=== PATIENT | female | born 1945 | race Caucasian/White ===

== ENCOUNTER 2024-06-30 13:06 | Outpatient (CLI) | payer MEDICARE, SELFPAY ==
--- NOTE | ~2024-06-30 | DEXA_ITS ---
Bone Density Report Name: REGINA BILLS Age: 79 Sex: Female Ethnicity: White Date of : 1945 Indication: postmenopausal; screening for osteoporosis; height loss; cancer; hysterectomy; Referring Provider: NIDA DILLARD Study: Bone densitometry was performed. Exam Date: June 30, 2024 Accession number: [id number] Bone Density: Region BMD T-score Z-score Classification AP Spine(L1-L4) 0.809 -2.2 0.4 Osteopenia Femoral Neck (Left) 0.698 -1.4 0.8 Osteopenia Total Hip (Left) 0.856 -0.7 1.2 Normal Femoral Neck (Right) 0.589 -2.3 -0.2 Osteopenia Total Hip (Right) 0.791 -1.2 0.7 Osteopenia Femoral Neck Mean 0.643 -1.9 0.3 Osteopenia Total Hip Mean 0.823 -1.0 0.9 Normal World Health Organization criteria for BMD impression classify patients as: Normal (T-score at or above -1.0), Osteopenia (T-score between -1.0 and -2.5), or Osteoporosis (T-score at or below -2.5). 10-year Fracture Risk(1): Major Osteoporotic Fracture 15% Hip Fracture 4.4% Reported Risk Factors: [place] (), Neck BMD=0.589, BMI=32.2 (1) FRAX(R) Version 3.08. Fracture probability calculated for an untreated patient. Fracture probability may be lower if the patient has received treatment. Clinical Information Provided by Patient: Has used the following medications: Calcium, multi Has the following medical conditions: Cancer, Hysterectomy Patient maximum height was 61. Menopause Age: 34 No regular weight bearing exercise Drinks caffeinated beverages Onset of menses at age 14 Number of children 4 Impression: The patient has low bone mass, based on the Right Femoral Neck T-score. Discussion: BONE DENSITY IS LOW AT ONE OR MORE SKELETAL SITES. This patient's lowest T-score is low at one or more skeletal sites. It meets the World Health Organization's (WHO) criteria for ?low bone mass? (T-score between -1.0 and -2.5). The patient's 10-year risk of fracture as calculated by FRAX is less than the threshold where pharmacological therapy is recommended by the National Osteoporosis Foundation (NOF). However, all treatment decisions require clinical judgment and consideration of individual patient factors, including patient preferences, comorbidities, previous drug use, risk factors not captured in the FRAX model (e.g., frailty, falls, vitamin D deficiency, increased bone turnover, interval significant decline in bone density) and possible under or overestimation of fracture risk by FRAX. The patient should follow a healthful lifestyle (good nutrition with adequate calcium and vitamin D, and appropriate weight-bearing exercise). Follow-Up: Consider repeating this study in 2 to 3 years to reassess this patient's status, or sooner if there is some new clinical indication. Reported by: WALDEMAR on 07/05/2024 11:19:00 AM. Revi
== END 2024-06-30 13:07 | disposition home or self-care (01) ==
PROVIDERS: PCP Family Medicine; Visit Provider Internal Medicine Hematology & Oncology
DX: Z78.0 Asymptomatic menopausal state (principal); M85.89 Other specified disorders of bone density and structure, multiple sites
CPT/HCPCS: 77080

== ENCOUNTER 2024-07-04 09:56 | Outpatient (CLI) | payer MEDICARE, SELFPAY ==
--- NOTE | ~2024-07-04 | MMUS_ITS ---
EXAMINATION: MM diagnostic azael RT w julia, US breast RT limited HISTORY: Right breast cancer, status post recent surgery, to begin radiation therapy. All prior imagi ng performed at outside institution. TECHNIQUE: 3-D tomosynthesis images of the right breast were performed and synthetic 2-D images were generated. CAD analysis was submitted and interpreted. High resolution limited right breast ultrasoun d was performed. COMPARISON: None available. BREAST PARENCHYMAL COMPOSITION:Dense: The breasts are extremely dense, which lowers the sensitivity o f mammography. FINDINGS: MAMMOGRAPHIC FINDINGS: There is a 9 cm ovoid mass at the upper, outer right breast. There is also a spiculated/irregular mas slike lesion at the right axillary region measuring 3.6 cm in diameter. No suspicious microcalcificat ions seen. ULTRASOUND: At the upper, outer quadrant right breast, there is a 6.4 x 8.0 x 4.6 cm cystic mass with internal ec hoes/debris and minimal lobulation/irregularity of the wall, most compatible large seroma. At the rig ht axillary region, there is a 1.8 x 1.7 x 1.1 cm somewhat irregular cystic collection, which could r eflect additional seroma possibly related to prior lymph node resection. IMPRESSION: Large right upper outer quadrant seroma and additional smaller somewhat more irregular probable serom a at the right axilla, presumably representing sequelae of recent lumpectomy and lymph node resection /dissection. Correlation with surgical history and reported recent outside imaging is advised. If renato or exams are submitted for comparison, an addendum to this report can be issued. BI-RADS 6: Known cancer diagnosis Reviewed, dictated and finalized at location M. IMPRESSION: Large right upper outer quadrant seroma and additional smaller somewhat more ir regular probable seroma at the right axilla, presumably representing sequelae o f recent lumpectomy and lymph node resection/dissection. Correlation with surgi dia history and reported recent outside imaging is advised. If prior exams are submitted for comparison, an addendum to this report can be issued. BI-RADS 6: Known cancer diagnosis
== END 2024-07-04 09:57 | disposition home or self-care (01) ==
LOC: CHSIMG 09:57
PROVIDERS: PCP Family Medicine
DX: C50.411 Malignant neoplasm of upper-outer quadrant of right female breast (principal); Z17.0 Estrogen receptor positive status [ER+]
CPT/HCPCS: 76642; 77061; 77065; G0279